=== PATIENT | male | born 1980 | race Caucasian/White ===

== ENCOUNTER 2020-01-17 12:03 | Emergency (ER) | payer MEDICAID, SELFPAY ==
[2020-01-17 12:04] VITALS: BP 151/84; PULSE 87; RESP 16; TEMP 37; O2SAT 98; BMI 20.7
--- NOTE | 2020-01-17 12:17 | ED.VISSUMM ---
- ER Visit Summary Date of Service: 01/17/20 Chief Complaint: [Dog bite to left hand] History of Present Illness: The patient is a 39 M [presents to the emergency department complaint of a dog bite to the left hand that occurred prior to arrival in the emergency department. 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 Patient is left-hand dominant. Patient is up-to-date on tetanus. Patient has no medical history. Patient has allergy to penicillin.] Physical Examination: [HEENT-PERRLA, EOMI. Cranial nerves II through XII grossly intact. TMs clear. Mucous membranes moist. No adenopathy. Cardiovascular-regular rate and rhythm without murmur or ectopy Lungs-clear to auscultation, chest wall stable without crepitus or subcu emphysema Abdomen-normoactive bowel sounds, soft, nontender, no rebound or rigidity, no peritoneal signs. Extremities-intact ?4, normal range of motion, normal pulses. Left hand-patient has multiple small punctures and abrasions to the dorsum of the left hand. Patient has a 2 cm flap-like laceration to the left index finger at the proximal phalanx volar aspect. Patient has good range of motion flexion extension of the DIP and PIP joint. Neurovascular intact.] Test Results: [X-ray of the left hand obtained showed no fractures only soft tissue swelling.] Emergency Department Course and Treatment: [Laceration repair-wound sterilely draped and prepped. Wound in the webspace between thumb and index finger anesthetized locally with 1% lidocaine total of 2 cc. Patient also had a digital block performed of the left index finger using 6 cc of 1% lidocaine. Wound irrigated with copious saline. Using 5-0 nylon a total of 3 single ruptured sutures used to approximate the wound edges of the left index finger loosely. There was no evidence of tendon involvement on exam. I did use sterile rubber bands obtain good hemostasis. Patient also had 2 single ruptured sutures placed in the wound in the webspace between the thumb and index finger after copious irrigation with saline. Once again these were approximated loosely.] Treatment Plan: [Patient to follow-up with [facility] for suture removal in 10 days. Patient advised to return if increasing pain, redness, swelling, purulent drainage, or condition should worsen anyway. Patient will be treated with clindamycin and Cipro as he has penicillin allergy.] Disposition: [Discharged home in stable condition] Impression: [Dog bite left hand Lacerations left hand total of 3 cm-simple repair] This note was generated with [employer] dictation software. It may contain incorrect words, spelling, and punctuation that were not noted in review of the chart prior to signing
--- NOTE | 2020-01-17 12:40 | RAD_ITS ---
STUDY: X-RAY - LEFT HAND REASON FOR EXAM: Male, 39 years old. Bit by dog, several lacerations to hand, swelling top of hand on 2nd and 3rd MCPs -- unable to straighten index finger TECHNIQUE: view(s) of the hand. COMPARISON: None. FINDINGS: Normal radiocarpal articulation. Normal distal radioulnar joint. Normal visualized carpal bones. Normal carpal articulations Normal carpometacarpal articulation of the thumb. Normal second through fifth carpometacarpal joints. Normal metacarpi. Normal metacarpophalangeal joint of the thumb. Normal interphalangeal joint of the thumb. Normal proximal and distal phalanges of the thumb. Normal metacarpophalangeal joints of the second through fifth fingers. Normal proximal and distal interphalangeal joints of the second through fifth fingers. Normal phalanges of the second through fifth fingers. Soft tissue swelling. Findings suggestive of a laceration in the thenar area. No radiopaque foreign bodies are seen. RAD/Hand Min 3 Views IMPRESSION: Soft tissue swelling and possible laceration at the level of the thenar area. Electronically Signed: Casimiro Contreras, at 13:01 EDT , Service support ,
--- NOTE | 2020-01-17 13:00 | ED.RN ---
rn contacted lucy from [facility] to check for drug screen for patient. pt works for [employer] out of [place]. lucy was unable to determine if drug screen was needed. lucy to wait for patients boss to arrive to determine if he wants drug screen.
--- NOTE | 2020-01-17 13:08 | ED.DEP ---
ED Disposition - Plan for ED Patient: Instructions: ED BITE Dog, ED Laceration Hand Prescriptions: Ciprofloxacin [Cipro] 500 mg PO BID #14 tab Prescription Printed Clindamycin HCl [Cleocin] 300 mg PO Q6H #40 cap Prescription Printed Referrals: [facility] OF PHYSICIANS] - 10 Day for suture removal
[2020-01-17] MEDS: Ciprofloxacin 500 MG Tablet PO (13:22)
[2020-01-17] MEDS: Clindamycin HCl 150 MG Capsule 300 MG PO (13:22)
--- NOTE | 2020-01-17 13:47 | ED.RN ---
patient's boss at the bedside. per boss no need for urine drug screen or alcohol breathalizer. lucy agreeable.
== END 2020-01-17 13:50 | disposition home or self-care (01) ==
PROVIDERS: Emergency Provider Emergency Medicine; PCP Family Medicine Geriatric Medicine
DX: S61.211A Laceration without foreign body of left index finger without damage to nail, initial encounter (principal); Z72.0 Tobacco use; W54.0XXA Bitten by dog, initial encounter; Y93.89 Activity, other specified; Y92.008 Other place in unspecified non-institutional (private) residence as the place of occurrence of the external cause; Y99.0 Civilian activity done for income or pay
CPT/HCPCS: 12001; 73130; 99283